=== PATIENT | female | born 1975 | race Caucasian/White ===

== ENCOUNTER 2016-06-26 13:24 | Outpatient (CLI) | payer OTHER ==
[~2016-06-26 13:24] MED LIST: ALBUTEROL HFA60 DOSE IN; DEMEROL50 MG PO; FLUOXETINE HCL20 MG PO; NORTRIPTYLINE H25 MG PO; OMEPRAZOLE40 MG PO; RANITIDINE HCL150 MG PO; REGLAN10 MG PO; SINGULAIR10 MG PO; WELLBUTRIN SR150 MG PO; ZYRTEC ALLERGY10 MG PO
--- NOTE | 2016-06-26 14:02 | DIAGNOSTIC IMAGING REPORT ---
PROCEDURE: XR HIP 2VW W W/O AP PELVIS-LT INDICATION: HIP PAIN LEFT TECHNIQUE: AP view of the pelvis and hips with lateral view of the left hip. COMPARISON: Pelvis and left hip dated 06/07/2013 FINDINGS: Left HIP: Osseous structures and joint spaces are normal. PELVIS: There is mild narrowing of the right hip joint. Osseous pelvis is otherwise normal. IMPRESSION: 1. Mild osteoarthritis right hip joint. Left hip normal.
== END 2016-06-26 23:00 ==
LOC: XR SRH 13:24
DX: M25.552 Pain in left hip (principal); M16.12 Unilateral primary osteoarthritis, left hip

== ENCOUNTER 2016-07-09 22:02 | Emergency (ER) | payer OTHER ==
--- NOTE | 2016-07-09 22:39 | ED NURSING NOTES ---
Clinical Report - Nurses [facility] [address] [place] [address] 07/09/2016 22:02 Patient: ASHLYN RITTER TRIAGE Triage time 22:06. Acuity: LEVEL 3. Chief Complaint: PAINFUL URINATION, URGENCY and FREQUENCY and BLOOD IN URINE. Alert. --22: Tracy Aden R.N. 22:06 07/09/16. BP: 111/57. HR: 89. RR: 15. O2 saturation: 100% on room air. Temp: 98.3 F (oral). Pain level now: 10/31. --22: Tracy Aden R.N. Weight: 77.1 kg stated. Height/Length: 68 inches Per Patient. BMI: 25.9. --22: Tracy Aden R.N. Medications PROzac Oral. ZyrTEC Oral. --22: Tracy Aden R.N. Wellbutrin Oral. --22: Tracy Aden R.N. Singulair Oral. --22: Tracy Aden R.N. Allergies Cortisone. Morphine Sulfate. Percocet. --22: Tracy Aden R.N. History Primary physician (Kyle). This started today. Treatment MANAGER FRONT OFFICE: None. SOCIAL HX: Smoker- current status unknown (cigarette). Regular alcohol use. No drug use. NUTRITIONAL RISK ASSESSMENT: The nutritional risk assessment revealed no deficiencies. FUNCTIONAL ASSESSMENT: Functional assessment: no impairments noted. --22: Tracy Aden R.N. PROBLEMS: Atypical Chest Pain. Chest Pain. Myofascial Strain. Endometriosis. Dental Pain. Environmental Allergies. LNMP - Last Normal Menstrual Period. --22: Tracy Aden R.N. ADDITIONAL SURGERIES: . Hip Surgery. Laproscopic. Left ankle surgery [2010]. --22: Tracy Aden R.N. Interventions ID band on patient. To treatment room. --22: Tracy Aden R.N. PHYSICAL ASSESSMENT Ambulatory to room. GENERAL / NEURO / PSYCH: Alert. Oriented X 4. Appears in no acute distress. HEENT: Mucous membranes are pink. RESPIRATORY: Respirations not labored. CVS: Capillary refill less than 2 seconds. SKIN: Skin is warm and dry. --22: Tracy Aden R.N. NURSING PROGRESS NOTES Head of bed elevated. Two patient identifiers checked. Call light placed in reach. Side rails up x 1. Bed placed in lowest position. Brakes of bed on. --22: Tracy Aden R.N. Patient ready for evaluation- chart flagged. --22: Tracy Aden R.N. ( pt aware of need for urine, states unable to go right now.). --22: Tracy Aden R.N. Patient ID band checked for patient name and birthdate: patient confirmed. Instructions provided to collect clean catch urine and patient verbalized understanding. Clean catch urine collected with return of yellow-colored clear urine; sample sent to lab. Specimen labeled in the presence of the patient. --: Tracy Aden R.N. DISPOSITION / DISCHARGE Departure time: 22:46. Condition at departure: unchanged. No learning barriers present. Discharge instructions provided and reviewed with the patient. Reviewed warnings (warning about urine being orange color due to meds). Reviewed medication(s). Treatments reviewed. Patient verbalized understanding. Written instructions provided in French. The patient was discharged by the nurse practitioner. She was discharged home and accompanied by spouse. She left the Emergency Department ambulatory and via private vehicle. Spouse driving. --22:46 Sulaiman Layne R.N. Locked/Released at 07/09/2016 22:47 by Sulaiman Layne R.N.
--- NOTE | 2016-07-09 22:39 | ED ORDER SUMMARY ---
..... Patient: ASHLYN RITTER OrderSheet [facility] VisitID: [id number] [address] [place] [address] 41y, F Registration Date/Time: 07/09/2016 ORDER SHEET Weight: 77.1 kg (stated) Allergies: Cortisone, Morphine Sulfate, Percocet GENERAL ORDERS: UA-Culture if indicated Urgent (22:07/09/2016 HBivens A.R.N.P.) (Ack 22:29 AMcQuoid ER Tech1) (22:41 TLewis R.N.) Urine Urgent (:07/09/2016 HBivens A.R.N.P.) (Ack 22:29 AMcQuoid ER Tech1) (22:41 TLewis R.N.) MEDICATION ORDERS: IV FLUIDS: ORDER SHEET NOTES: [Electronically signed by Sulaiman Layne R.N. (22:47 07/09/2016)] [Electronically signed by Bhumika Mcguire.R.N.P. (13:02 07/11/2016)] [Electronically locked/signed by Sulaiman Layne R.N. (22:47 07/09/2016)]
--- NOTE | 2016-07-09 22:39 | ED ORDER SUMMARY ---
..... Patient: ASHLYN RITTER OrderSheet [facility] VisitID: [id number] [address] [place] [address] 41y, F Registration Date/Time: 07/09/2016 ORDER SHEET Weight: 77.1 kg (stated) Allergies: Cortisone, Morphine Sulfate, Percocet GENERAL ORDERS: UA-Culture if indicated Urgent (22:07/09/2016 HBivens A.R.N.P.) (Ack 22:29 AMcQuoid ER Tech1) (22:41 TLewis R.N.) Urine Urgent (:07/09/2016 HBivens A.R.N.P.) (Ack 22:29 AMcQuoid ER Tech1) (22:41 TLewis R.N.) MEDICATION ORDERS: IV FLUIDS: ORDER SHEET NOTES: [Electronically signed by Sulaiman Layne R.N. (22:47 07/09/2016)] [Electronically signed by Bhumika Mcguire.R.N.P. (13:02 07/11/2016)] [Electronically locked/signed by Sulaiman Layne R.N. (22:47 07/09/2016)]
--- NOTE | 2016-07-09 22:39 | ED NURSING NOTES ---
Clinical Report - Nurses [facility] [address] [place] [address] 07/09/2016 22:02 Patient: ASHLYN RITTER TRIAGE Triage time 22:06. Acuity: LEVEL 3. Chief Complaint: PAINFUL URINATION, URGENCY and FREQUENCY and BLOOD IN URINE. Alert. --22: Tracy Aden R.N. 22:06 07/09/16. BP: 111/57. HR: 89. RR: 15. O2 saturation: 100% on room air. Temp: 98.3 F (oral). Pain level now: 10/31. --22: Tracy Aden R.N. Weight: 77.1 kg stated. Height/Length: 68 inches Per Patient. BMI: 25.9. --22: Tracy Aden R.N. Medications PROzac Oral. ZyrTEC Oral. --22: Tracy Aden R.N. Wellbutrin Oral. --22: Tracy Aden R.N. Singulair Oral. --22: Tracy Aden R.N. Allergies Cortisone. Morphine Sulfate. Percocet. --22: Tracy Aden R.N. History Primary physician (Kyle). This started today. Treatment DISMANTLER: None. SOCIAL HX: Smoker- current status unknown (cigarette). Regular alcohol use. No drug use. NUTRITIONAL RISK ASSESSMENT: The nutritional risk assessment revealed no deficiencies. FUNCTIONAL ASSESSMENT: Functional assessment: no impairments noted. --22: Tracy Aden R.N. PROBLEMS: Atypical Chest Pain. Chest Pain. Myofascial Strain. Endometriosis. Dental Pain. Environmental Allergies. LNMP - Last Normal Menstrual Period. --22: Tracy Aden R.N. ADDITIONAL SURGERIES: . Hip Surgery. Laproscopic. Left ankle surgery [2010]. --22: Tracy Aden R.N. Interventions ID band on patient. To treatment room. --22: Tracy Aden R.N. PHYSICAL ASSESSMENT Ambulatory to room. GENERAL / NEURO / PSYCH: Alert. Oriented X 4. Appears in no acute distress. HEENT: Mucous membranes are pink. RESPIRATORY: Respirations not labored. CVS: Capillary refill less than 2 seconds. SKIN: Skin is warm and dry. --22: Tracy Aden R.N. NURSING PROGRESS NOTES Head of bed elevated. Two patient identifiers checked. Call light placed in reach. Side rails up x 1. Bed placed in lowest position. Brakes of bed on. --22: Tracy Aden R.N. Patient ready for evaluation- chart flagged. --22: Tracy Aedn R.N. ( pt aware of need for urine, states unable to go right now.). --22: Tracy Aden R.N. Patient ID band checked for patient name and birthdate: patient confirmed. Instructions provided to collect clean catch urine and patient verbalized understanding. Clean catch urine collected with return of yellow-colored clear urine; sample sent to lab. Specimen labeled in the presence of the patient. --: Tracy Aden R.N. DISPOSITION / DISCHARGE Departure time: 22:46. Condition at departure: unchanged. No learning barriers present. Discharge instructions provided and reviewed with the patient. Reviewed warnings (warning about urine being orange color due to meds). Reviewed medication(s). Treatments reviewed. Patient verbalized understanding. Written instructions provided in Divehi. The patient was discharged by the nurse practitioner. She was discharged home and accompanied by spouse. She left the Emergency Department ambulatory and via private vehicle. Spouse driving. --22:46 Sulaiman Layne R.N. Locked/Released at 07/09/2016 22:47 by Sulaiman Layne R.N.
--- NOTE | 2016-07-09 22:39 | ED CLINICAL REPORT ---
Clinical Report - Physicians/Mid Levels [facility] [address] [place] [address] 07/09/2016 22:02 Patient: ASHLYN RITTER Time Seen: 22:22; initial patient contact, initial documentation, patient care assumed. Arrived- By private vehicle. Historian- patient. HISTORY OF PRESENT ILLNESS Chief Complaint: DYSURIA. This started about 3 days ago and still present (worse today). The symptoms are described as moderate. Modifying factors- worsened by urination. Not relieved by anything. No abdominal pain, pelvic pain, vaginal pain, low back pain or flank pain. No vaginal discharge. She has had pain with urination and urgency of urination. The patient has had urinary frequency and hematuria. Sexually active- unprotected sex and heterosexual. No exposure to sexually transmitted disease. Similar symptoms previously: Occasionally, as bad. Recent medical care: Not recently seen/assessed. REVIEW OF SYSTEMS No nausea, vomiting, diarrhea, fever or difficulty breathing. No chest pain. All systems otherwise negative, except as recorded above. PAST HISTORY See nurses notes. ( PROBLEMS: Atypical Chest Pain. Chest Pain. Myofascial Strain. Endometriosis. Dental Pain. Environmental Allergies. LNMP - Last Normal Menstrual Period. --22:08 Tracy Aedn R.N. ADDITIONAL SURGERIES: . Hip Surgery. Laproscopic. Left ankle surgery [2010]. --22:08 Tracy Aden RDillan.). SOCIAL HISTORY Light tobacco smoker. Occasional alcohol use. No drug use. No recent travel. Is a local resident. FAMILY HISTORY Negative. ADDITIONAL NOTES The nursing notes have been reviewed with agreement regarding the chief complaint, HPI, ROS, PMH and patient medications and allergies. PHYSICAL EXAM Vital Signs: 07/09/2016 22:06 BP: 111/57. HR: 89. RR: 15. O2 saturation: 100%. Temp: 98.3 F. Pain level now: 6/10. Have been reviewed as normal and appear to be correct. Appearance: Alert. Oriented X3. No acute distress. HEENT: Normal external inspection. ENT: Pharynx normal. Neck: Neck supple. CVS: Heart sounds normal. Respiratory: No respiratory distress. Breath sounds normal. Chest nontender. Abdomen: Soft and nontender. Back: Normal external inspection. Skin: Skin warm and dry. Normal skin color. No rash. Normal skin turgor. Extremities: Extremities nontender. No lower extremity edema. Neuro: Oriented X 3. Mood/affect normal. No motor deficit. No sensory deficit. LABS, X-RAYS, AND EKG Laboratory Tests: UA-Culture if indicated: (QUINTON: 07/09/2016 22:26) ( MsgRcvd 07/09/2016 22:34) IP Test Result Flag Units (Reference) URINE COLOR YELLOW URINE APPEARANCE TURBID URINE GLUCOSE NEGATIVE (NEGATIVE) URINE BILIRUBIN NEGATIVE (NEGATIVE) URINE KETONE NEGATIVE (NEGATIVE) URINE SPECIFIC GRAVITY 1.015 (1.010-1.030) URINE PH 6.0 (5.0-8.0) URINE PROTEIN 2+ (NEGATIVE) URINE UROBILINOGEN 0.2 EU/dL (0.2-1.0) URINE NITRITE NEGATIVE (NEGATIVE) URINE BLOOD 3+ (NEGATIVE) URINE LEUK ESTERASE POSITIVE (NEGATIVE) . PROGRESS AND PROCEDURES Patient counseled in person regarding the patient's stable condition, test results and diagnosis. 22:38. Differential Diagnosis: Other possible considerations: uti, pyelo, urosepsis, cystitis, kidney stone. Above considerations are based on history, physical exam and laboratory data. Differential diagnosis was discussed with patient. Disposition: Discharged home in good and unchanged condition (22:39). Condition: good and stable. CLINICAL IMPRESSION Acute urinary tract infection with cystitis and hematuria. No pyelonephritis. Not associated with indwelling catheter or obstruction. INSTRUCTIONS Drink plenty of fluids for the next 24 hours until better. Warnings: GENERAL WARNINGS: Return or contact your physician immediately if your condition worsens or changes unexpectedly, if not improving as expected, or if other problems arise. Specifically return if problem worsens. Prescription Medications: Pyridium 200 mg: take 1 orally every 8 hours as needed for urinary problems. Dispense six (6). No refills. Substitution is permissible. Septra DS 800 mg / 160 mg: take 1 tablet orally every 12 hours for 7 days. Dispense fourteen (14). No refills. Substitution is permissible. Follow-up: Follow up with your doctor in about three days even if well. Call for an appointment. Summary of care provided to patient. Understanding of the discharge instructions verbalized by patient. (Electronically signed by Bhumika Mcguire A.R.N.P. 07/11/2016 13:02)
--- NOTE | 2016-07-11 13:02 | ED DISCHARGE INSTRUCTIONS ---
Patient: ASHLYN RITTER General Instructions [facility] VisitID: [id number] [address] [place] [address] 41y, F Registration Date/Time: 07/09/2016 Acute urinary tract infection with cystitis and hematuria. No pyelonephritis. Not associated with indwelling catheter or obstruction. INSTRUCTIONS Drink plenty of fluids for the next 24 hours until better. Warnings: GENERAL WARNINGS: Return or contact your physician immediately if your condition worsens or changes unexpectedly, if not improving as expected, or if other problems arise. Specifically return if problem worsens. Prescription Medications: Pyridium 200 mg: take 1 orally every 8 hours as needed for urinary problems. Dispense six (6). No refills. Substitution is permissible. Septra DS 800 mg / 160 mg: take 1 tablet orally every 12 hours for 7 days. Dispense fourteen (14). No refills. Substitution is permissible. Follow-up: Follow up with your doctor in about three days even if well. Call for an appointment. Summary of care provided to patient. Understanding of the discharge instructions verbalized by patient. ADDITIONAL INFORMATION Bladder Infection,Female (Adult) A bladder infection ("cystitis" or "UTI") usually causes a constant urge to urinate and a burning when passing urine. Urine may be cloudy, smelly or dark. There may be pain in the lower abdomen. A bladder infection occurs when bacteria from the vaginal area enter the bladder opening (urethra). This can occur from sexual intercourse, wearing tight clothing, dehydration and other factors. Home Care: Drink lots of fluids (at least 6-8 glasses a day, unless you must restrict fluids for other medical reasons). This will force the medicine into your urinary system and flush the bacteria out of your body. Avoid sexual intercourse until your symptoms are gone. Avoid caffeine, alcohol and spicy foods. These can irritate the bladder. A bladder infection is treated with antibiotics. You may also be given Pyridium (generic = phenazopyridine) to reduce the burning sensation. This medicine will cause your urine to become a bright orange color. The orange urine may stain clothing. You may wear a pad or panty-liner to protect clothing. Preventing Future Infections: Always wipe from front to back after a bowel movement. Keep the genital area clean and dry. Drink plenty of fluids each day to avoid dehydration. Both sexual partners should wash before intercourse. Urinate right after intercourse to flush out the bladder. Wear cotton underwear and cotton-lined panty hose; avoid tight-fitting pants. If you are on control pills and are having frequent bladder infections, discuss with your doctor. Follow Up: Return to this facility or see your doctor if ALL symptoms are not gone after three days of treatment. Get Prompt Medical Attention if any of the following occur: Fever of 100.4F (38C) or higher, or as directed by your healthcare provider No improvement by the third day of treatment Increasing back or abdominal pain Repeated vomiting; unable to keep medicine down Weakness, dizziness or fainting Vaginal discharge Pain, redness or swelling in the labia (outer vaginal area) Phenazopyridine Hydrochloride Oral tablet What is this medicine? PHENAZOPYRIDINE (fen az oh PEER i racquel) is a pain reliever. It is used to stop the pain, burning, or discomfort caused by infection or irritation of the urinary tract. This medicine is not an antibiotic. It will not cure a urinary tract infection. How should I use this medicine? Take this medicine by mouth with a glass of water. Follow the directions on the prescription label. Take after meals. Take your doses at regular intervals. Do not take your medicine more often than directed. Do not skip doses or stop your medicine early even if you feel better. Do not stop taking except on your doctor's advice. Talk to your repairer finished metal regarding the use of this medicine in children. Special care may be needed. What side effects may I notice from receiving this medicine? Side effects that you should report to your doctor or health administrator health care facility as soon as possible: allergic reactions like skin rash, itching or hives, swelling of the face, lips, or tongue blue or purple color of the skin difficulty breathing fever less urine unusual bleeding, bruising unusual tired, weak vomiting yellowing of the eyes or skin Side effects that usually do not require medical attention (report to your doctor or health administrator health care facility if they continue or are bothersome): dark urine headache stomach upset What may interact with this medicine? Interactions are not expected. What if I miss a dose? If you miss a dose, take it as soon as you can. If it is almost time for your next dose, take only that dose. Do not take double or extra doses. Where should I keep my medicine? Keep out of the reach of children. Store at room temperature between 15 and 30 degrees C (59 and 86 degrees F). Protect from light and moisture. Throw away any unused medicine after the expiration date. What should I tell my health care provider before I take this medicine? They need to know if you have any of these conditions: peuockp-2-cfrhvvoxt dehydrogenase (G6PD) deficiency kidney disease an unusual or allergic reaction to phenazopyridine, other medicines, foods, dyes, or preservatives or trying to get breast-feeding What should I watch for while using this medicine? Tell your doctor or health administrator health care facility if your symptoms do not improve or if they get worse. This medicine colors body fluids red. This effect is harmless and will go away after you are done taking the medicine. It will change urine to an dark orange or red color. The red color may stain clothing. Soft contact lenses may become permanently stained. It is best not to wear soft contact lenses while taking this medicine. If you are diabetic you may get a false positive result for sugar in your urine. Talk to your health care provider. Sulfamethoxazole, Trimethoprim Oral tablet What is this medicine? SULFAMETHOXAZOLE; TRIMETHOPRIM or SMX-TMP (suhl fuh meth OK cat zohl; trye METH oh prim) is a combination of a sulfonamide antibiotic and a second antibiotic, trimethoprim. It is used to treat or prevent certain kinds of bacterial infections. It will not work for colds, flu, or other viral infections. How should I use this medicine? Take this medicine by mouth with a full glass of water. Follow the directions on the prescription label. Take your medicine at regular intervals. Do not take it more often than directed. Do not skip doses or stop your medicine early. Talk to your repairer finished metal regarding the use of this medicine in children. Special care may be needed. This medicine has been used in children as young as 2 months of age. What side effects may I notice from receiving this medicine? Side effects that you should report to your doctor or health administrator health care facility as soon as possible: allergic reactions like skin rash or hives, swelling of the face, lips, or tongue breathing problems fever or chills, sore throat irregular heartbeat, chest pain joint or muscle pain pain or difficulty passing urine red pinpoint spots on skin redness, blistering, peeling or loosening of the skin, including inside the mouth unusual bleeding or bruising unusually weak or tired yellowing of the eyes or skin Side effects that usually do not require medical attention (report to your doctor or health administrator health care facility if they continue or are bothersome): diarrhea dizziness headache loss of appetite nausea, vomiting nervousness What may interact with this medicine? Do not take this medicine with any of the following medications: aminobenzoate potassium dofetilide metronidazole This medicine may also interact with the following medications: OLIVER inhibitors like benazepril, enalapril, lisinopril, and ramipril cyclosporine digoxin diuretics indomethacin medicines for diabetes methenamine methotrexate phenytoin potassium supplements pyrimethamine sulfinpyrazone tricyclic antidepressants warfarin What if I miss a dose? If you miss a dose, take it as soon as you can. If it is almost time for your next dose, take only that dose. Do not take double or extra doses. Where should I keep my medicine? Keep out of the reach of children. Store at room temperature between 20 to 25 degrees C (68 to 77 degrees F). Protect from light. Throw away any unused medicine after the expiration date. What should I tell my health care provider before I take this medicine? They need to know if you have any of these conditions: anemia asthma being treated with anticonvulsants if you frequently drink alcohol containing drinks kidney disease liver disease low level of folic acid or grbiraw-9-eynppccws dehydrogenase poor nutrition or malabsorption porphyria severe allergies thyroid disorder an unusual or allergic reaction to sulfamethoxazole, trimethoprim, sulfa drugs, other medicines, foods, dyes, or preservatives or trying to get breast-feeding What should I watch for while using this medicine? Tell your doctor or health administrator health care facility if your symptoms do not improve. Drink several glasses of water a day to reduce the risk of kidney problems. Do not treat diarrhea with over the counter products. Contact your doctor if you have diarrhea that lasts more than 2 days or if it is severe and watery. This medicine can make you more sensitive to the sun. Keep out of the sun. If you cannot avoid being in the sun, wear protective clothing and use a sunscreen. Do not use sun lamps or tanning beds/booths. You have been given the following additional information: Bladder Infection, Female (Adult) Phenazopyridine Hydrochloride Oral tablet Sulfamethoxazole, Trimethoprim Oral tablet (Electronically signed by Bhumika Mcguire A.R.N.P. 07/11/2016 13:02)
--- NOTE | 2016-07-11 13:02 | ED DISCHARGE INSTRUCTIONS ---
Patient: ASHLYN RITTER General Instructions [facility] VisitID: [id number] [address] [place] [address] 41y, F Registration Date/Time: 07/09/2016 Acute urinary tract infection with cystitis and hematuria. No pyelonephritis. Not associated with indwelling catheter or obstruction. INSTRUCTIONS Drink plenty of fluids for the next 24 hours until better. Warnings: GENERAL WARNINGS: Return or contact your physician immediately if your condition worsens or changes unexpectedly, if not improving as expected, or if other problems arise. Specifically return if problem worsens. Prescription Medications: Pyridium 200 mg: take 1 orally every 8 hours as needed for urinary problems. Dispense six (6). No refills. Substitution is permissible. Septra DS 800 mg / 160 mg: take 1 tablet orally every 12 hours for 7 days. Dispense fourteen (14). No refills. Substitution is permissible. Follow-up: Follow up with your doctor in about three days even if well. Call for an appointment. Summary of care provided to patient. Understanding of the discharge instructions verbalized by patient. ADDITIONAL INFORMATION Bladder Infection,Female (Adult) A bladder infection ("cystitis" or "UTI") usually causes a constant urge to urinate and a burning when passing urine. Urine may be cloudy, smelly or dark. There may be pain in the lower abdomen. A bladder infection occurs when bacteria from the vaginal area enter the bladder opening (urethra). This can occur from sexual intercourse, wearing tight clothing, dehydration and other factors. Home Care: Drink lots of fluids (at least 6-8 glasses a day, unless you must restrict fluids for other medical reasons). This will force the medicine into your urinary system and flush the bacteria out of your body. Avoid sexual intercourse until your symptoms are gone. Avoid caffeine, alcohol and spicy foods. These can irritate the bladder. A bladder infection is treated with antibiotics. You may also be given Pyridium (generic = phenazopyridine) to reduce the burning sensation. This medicine will cause your urine to become a bright orange color. The orange urine may stain clothing. You may wear a pad or panty-liner to protect clothing. Preventing Future Infections: Always wipe from front to back after a bowel movement. Keep the genital area clean and dry. Drink plenty of fluids each day to avoid dehydration. Both sexual partners should wash before intercourse. Urinate right after intercourse to flush out the bladder. Wear cotton underwear and cotton-lined panty hose; avoid tight-fitting pants. If you are on control pills and are having frequent bladder infections, discuss with your doctor. Follow Up: Return to this facility or see your doctor if ALL symptoms are not gone after three days of treatment. Get Prompt Medical Attention if any of the following occur: Fever of 100.4F (38C) or higher, or as directed by your healthcare provider No improvement by the third day of treatment Increasing back or abdominal pain Repeated vomiting; unable to keep medicine down Weakness, dizziness or fainting Vaginal discharge Pain, redness or swelling in the labia (outer vaginal area) Phenazopyridine Hydrochloride Oral tablet What is this medicine? PHENAZOPYRIDINE (fen az oh PEER i racquel) is a pain reliever. It is used to stop the pain, burning, or discomfort caused by infection or irritation of the urinary tract. This medicine is not an antibiotic. It will not cure a urinary tract infection. How should I use this medicine? Take this medicine by mouth with a glass of water. Follow the directions on the prescription label. Take after meals. Take your doses at regular intervals. Do not take your medicine more often than directed. Do not skip doses or stop your medicine early even if you feel better. Do not stop taking except on your doctor's advice. Talk to your insurance office manager regarding the use of this medicine in children. Special care may be needed. What side effects may I notice from receiving this medicine? Side effects that you should report to your doctor or health occasional caregiver as soon as possible: allergic reactions like skin rash, itching or hives, swelling of the face, lips, or tongue blue or purple color of the skin difficulty breathing fever less urine unusual bleeding, bruising unusual tired, weak vomiting yellowing of the eyes or skin Side effects that usually do not require medical attention (report to your doctor or health occasional caregiver if they continue or are bothersome): dark urine headache stomach upset What may interact with this medicine? Interactions are not expected. What if I miss a dose? If you miss a dose, take it as soon as you can. If it is almost time for your next dose, take only that dose. Do not take double or extra doses. Where should I keep my medicine? Keep out of the reach of children. Store at room temperature between 15 and 30 degrees C (59 and 86 degrees F). Protect from light and moisture. Throw away any unused medicine after the expiration date. What should I tell my health care provider before I take this medicine? They need to know if you have any of these conditions: dckhiie-3-oobfavzck dehydrogenase (G6PD) deficiency kidney disease an unusual or allergic reaction to phenazopyridine, other medicines, foods, dyes, or preservatives or trying to get breast-feeding What should I watch for while using this medicine? Tell your doctor or health occasional caregiver if your symptoms do not improve or if they get worse. This medicine colors body fluids red. This effect is harmless and will go away after you are done taking the medicine. It will change urine to an dark orange or red color. The red color may stain clothing. Soft contact lenses may become permanently stained. It is best not to wear soft contact lenses while taking this medicine. If you are diabetic you may get a false positive result for sugar in your urine. Talk to your health care provider. Sulfamethoxazole, Trimethoprim Oral tablet What is this medicine? SULFAMETHOXAZOLE; TRIMETHOPRIM or SMX-TMP (suhl fuh meth OK cat zohl; trye METH oh prim) is a combination of a sulfonamide antibiotic and a second antibiotic, trimethoprim. It is used to treat or prevent certain kinds of bacterial infections. It will not work for colds, flu, or other viral infections. How should I use this medicine? Take this medicine by mouth with a full glass of water. Follow the directions on the prescription label. Take your medicine at regular intervals. Do not take it more often than directed. Do not skip doses or stop your medicine early. Talk to your insurance office manager regarding the use of this medicine in children. Special care may be needed. This medicine has been used in children as young as 2 months of age. What side effects may I notice from receiving this medicine? Side effects that you should report to your doctor or health occasional caregiver as soon as possible: allergic reactions like skin rash or hives, swelling of the face, lips, or tongue breathing problems fever or chills, sore throat irregular heartbeat, chest pain joint or muscle pain pain or difficulty passing urine red pinpoint spots on skin redness, blistering, peeling or loosening of the skin, including inside the mouth unusual bleeding or bruising unusually weak or tired yellowing of the eyes or skin Side effects that usually do not require medical attention (report to your doctor or health occasional caregiver if they continue or are bothersome): diarrhea dizziness headache loss of appetite nausea, vomiting nervousness What may interact with this medicine? Do not take this medicine with any of the following medications: aminobenzoate potassium dofetilide metronidazole This medicine may also interact with the following medications: OLIVER inhibitors like benazepril, enalapril, lisinopril, and ramipril cyclosporine digoxin diuretics indomethacin medicines for diabetes methenamine methotrexate phenytoin potassium supplements pyrimethamine sulfinpyrazone tricyclic antidepressants warfarin What if I miss a dose? If you miss a dose, take it as soon as you can. If it is almost time for your next dose, take only that dose. Do not take double or extra doses. Where should I keep my medicine? Keep out of the reach of children. Store at room temperature between 20 to 25 degrees C (68 to 77 degrees F). Protect from light. Throw away any unused medicine after the expiration date. What should I tell my health care provider before I take this medicine? They need to know if you have any of these conditions: anemia asthma being treated with anticonvulsants if you frequently drink alcohol containing drinks kidney disease liver disease low level of folic acid or iotkefi-8-plgwvevid dehydrogenase poor nutrition or malabsorption porphyria severe allergies thyroid disorder an unusual or allergic reaction to sulfamethoxazole, trimethoprim, sulfa drugs, other medicines, foods, dyes, or preservatives or trying to get breast-feeding What should I watch for while using this medicine? Tell your doctor or health occasional caregiver if your symptoms do not improve. Drink several glasses of water a day to reduce the risk of kidney problems. Do not treat diarrhea with over the counter products. Contact your doctor if you have diarrhea that lasts more than 2 days or if it is severe and watery. This medicine can make you more sensitive to the sun. Keep out of the sun. If you cannot avoid being in the sun, wear protective clothing and use a sunscreen. Do not use sun lamps or tanning beds/booths. You have been given the following additional information: Bladder Infection, Female (Adult) Phenazopyridine Hydrochloride Oral tablet Sulfamethoxazole, Trimethoprim Oral tablet (Electronically signed by Bhumika Mcguire A.R.N.P. 07/11/2016 13:02)
--- NOTE | 2016-07-11 13:03 | ED MAR SUMMARY ---
..... Medication Administration Record [facility] [address], [place] [id number] Patient: ASHLYN RITTER Visit ID: [id number] 41y, F Weight: 77.1 kg Height/Length: 68 in BMI: 25.9 ALLERGIES: Cortisone, Morphine Sulfate, Percocet
--- NOTE | 2016-07-11 13:03 | ED MAR SUMMARY ---
..... Medication Administration Record [facility] [address], [place] [id number] Patient: ASHLYN RITTER Visit ID: [id number] 41y, F Weight: 77.1 kg Height/Length: 68 in BMI: 25.9 ALLERGIES: Cortisone, Morphine Sulfate, Percocet
--- NOTE | 2016-07-11 13:03 | ED MED RECONCILIATION SUMMARY ---
Patient: ASHLYN RITTER Medication Reconciliation Report [facility] VisitID: [id number] [address] [place] [address] 41y, F Registration Date/Time: 07/09/2016 Weight: 77.1 kg Height/Length: 68 in. BMI: 25.9 ALLERGIES: Cortisone, Morphine Sulfate, Percocet The patient's Home Medications are listed below: THE FOLLOWING MEDICATIONS NEED TO BE RECONCILED: PROzac Oral Singulair Oral Wellbutrin Oral ZyrTEC Oral The source(s) of the original Home Medication information: Not obtained. The following Medications were given to the patient in the Emergency Department: None. The following Medications were prescribed to the patient: Pyridium 200 mg: take 1 orally every 8 hours as needed for urinary problems. Dispense six (6). No refills. Substitution is permissible. -- Bhumika Mcguire A.R.NRenitaP. Septra DS 800 mg / 160 mg: take 1 tablet orally every 12 hours for 7 days. Dispense fourteen (14). No refills. Substitution is permissible. -- Bhumika Mcguire A.R.N.P.
--- NOTE | 2016-07-11 13:03 | ED MED RECONCILIATION SUMMARY ---
Patient: ASHLYN RITTER Medication Reconciliation Report [facility] VisitID: [id number] [address] [place] [address] 41y, F Registration Date/Time: 07/09/2016 Weight: 77.1 kg Height/Length: 68 in. BMI: 25.9 ALLERGIES: Cortisone, Morphine Sulfate, Percocet The patient's Home Medications are listed below: THE FOLLOWING MEDICATIONS NEED TO BE RECONCILED: PROzac Oral Singulair Oral Wellbutrin Oral ZyrTEC Oral The source(s) of the original Home Medication information: Not obtained. The following Medications were given to the patient in the Emergency Department: None. The following Medications were prescribed to the patient: Pyridium 200 mg: take 1 orally every 8 hours as needed for urinary problems. Dispense six (6). No refills. Substitution is permissible. -- Bhumika Mcguire A.R.NRenitaP. Septra DS 800 mg / 160 mg: take 1 tablet orally every 12 hours for 7 days. Dispense fourteen (14). No refills. Substitution is permissible. -- Bhumika Mcguire A.R.N.P.
== END 2016-07-09 22:45 | disposition home or self-care (01) ==
LOC: ED SRH 22:02
DX: N30.01 Acute cystitis with hematuria (principal); F17.210 Nicotine dependence, cigarettes, uncomplicated; Z88.5 Allergy status to narcotic agent; Z88.8 Allergy status to other drugs, medicaments and biological substances
CPT/HCPCS: 90004; 90469; 93070